=== PATIENT | female | born 1965 | race Two or more races ===

== ENCOUNTER 2023-02-14 00:19 | Emergency (ER) | payer OTHER ==
[~2023-02-14] VITALS: Ht 170.2 cm; Wt 127.0 kg
[2023-02-14] MEDS ORDERED: ZESTRIL20 MG PO (00:23)
[2023-02-14] MEDS ORDERED: LANTUS SOL100 UNIT/1 (00:24)
[2023-02-14] MEDS ORDERED: ATORVASTATIN CA10 MG PO (00:24)
[2023-02-14] MEDS ORDERED: SYNJARDY XR 101 EACH PO (00:24)
[2023-02-14] MEDS ORDERED: NORVASC2.5 M1 PO (00:25)
[2023-02-14 02:22] LABS: HEMATOCRIT 40.7 % (36.0-45.00); MEAN CELL VOLUME 85.1 fL (80.00-100.00); MEAN CORPUSCULAR HEMOGLOBIN 27.1 pg (27.00-32.0); MEAN CORPUSCULAR HGB CONC 31.9 g/dl (32.0-36.0); PLATELET COUNT 285 K/uL (150-450); RED BLOOD COUNT 4.78 M/uL (4.00-6.00); RED CELL DISTRIBUTION WIDTH 16.1 % (11.5-14.5)
[2023-02-14 02:41] LABS: INR 0.96; PARTIAL THROMBOPLASTIN TIME 22.5 SECONDS (22.0-34.0); PROTHROMBIN TIME 10.1 SECONDS (9.0-11.5)
[2023-02-14 02:50] LABS: ALBUMIN 3.4 gm/dL (3.4-5.0); BILIRUBIN TOTAL 0.24 mg/dL (0.3-1.2); CALCIUM 9.5 mg/dL (8.5-10.1); CREATININE SERUM 0.9 mg/dL (0.55-1.02); GFR 64.09; GLOBULINA 4.1 G/DL (2.4-3.5); POTASSIUM 3.49 mEq/L (3.5-5.1); TOTAL PROTEIN 7.5 gm/dL (6.4-8.2)
[2023-02-14 03:07] LABS: URINE APPEARANCE CLEAR; URINE BILIRRUBIN NEGATIVE (NEGATIVE); URINE BLOOD TRACE; URINE COLOR YELLOW; URINE GLUCOSE >=1000 MG/DL (NEGATIVE); URINE PROTEIN NEGATIVE (NEGATIVE)
[2023-02-14 03:08] LABS: URINE BACTERIA SOME; URINE LEUKOCYTE NEGATIVE; URINE MUCUS NEGATIVE; URINE NITRATE NEGATIVE; URINE UROBILINOGEN 0.2 E.U./dl
== END 2023-02-14 04:05 | disposition home or self-care (01) ==
LOC: ER 00:20
PROVIDERS: General Practice
DX: N93.9 Abnormal uterine and vaginal bleeding, unspecified (principal)

== ENCOUNTER → 2024-04-25 | Emergency (ER) | payer OTHER ==
[~2024-04-25] VITALS: Ht 165.1 cm; Wt 122.5 kg
[~2024-04-25] MED LIST: ATORVASTATIN CA10 MG PO; CEPHALEXIN500 MG PO; FAMOTIDINE/PF 20 MG/2 ML VIAL ONE; FAMOtidine 10 MG/ML (4ML VIAL) IV ONE; KETO10TA2 PO; KETOROLAC TROMETHAMINE 30 MG VIAL IV STA; KETOROLAC TROMETHAMINE 60 MG VIAL IM ONE; LANTUS SOL100 UNIT/1; NORVASC2.5 M1 PO; ONDANSETRON HCL 2 MG/ML VIAL IV ONE; ONDANSETRON HCL 2 MG/ML VIAL ONE; PEPCID40 MG PO; SYNJARDY XR 101 EACH PO; ZESTRIL20 MG PO
[2024-04-25 20:39] VITALS: BP 146/69
[2024-04-26 00:50] LABS: HEMATOCRIT 40.6 % (36.0-45.00); HEMOGLOBIN 13.5 g/dL (12.0-15.00); MEAN CELL VOLUME 86.6 fL (80.00-100.00); MEAN CORPUSCULAR HEMOGLOBIN 28.7 pg (27.00-32.0); MEAN CORPUSCULAR HGB CONC 33.1 g/dl (32.0-36.0); PLATELET COUNT 276 K/uL (150-450); RED BLOOD COUNT 4.69 M/uL (4.00-6.00); RED CELL DISTRIBUTION WIDTH 14.9 % (11.5-14.5)
[2024-04-26 01:20] LABS: INR < 0.93; PARTIAL THROMBOPLASTIN TIME 20.1 SECONDS (22.0-34.0); PROTHROMBIN TIME 10.2 SECONDS (9.0-11.5)
[2024-04-26 01:23] LABS: ALBUMIN 3.6 gm/dL (3.4-5.0); BILIRUBIN TOTAL 0.33 mg/dL (0.3-1.2); CALCIUM 9.1 mg/dL (8.5-10.1); CREATININE SERUM 0.86 mg/dL (0.55-1.02); GFR 67.31; GLOBULINA 3.8 G/DL (2.4-3.5); POTASSIUM 3.68 mEq/L (3.5-5.1); TOTAL PROTEIN 7.4 gm/dL (6.4-8.2)
[2024-04-26 03:56] LABS: AMYLASE 48 U/L (25-115)
[2024-04-26 04:02] LABS: LIPASE 34 U/L (13-75)
[2024-04-26 07:16] LABS: URINE APPEARANCE Cloudy; URINE BILIRRUBIN Negative (NEGATIVE); URINE BLOOD Negative; URINE COLOR Yellow; URINE KETONE Trace (NEGATIVE); URINE LEUKOCYTE Negative; URINE NITRATE Positive; URINE PROTEIN Negative (NEGATIVE); URINE UROBILINOGEN 0.2 E.U./dl
[2024-04-26 07:19] LABS: URINE EPITHELIAL CELLS 15.8 uL (0.0-38.8); URINE WBC 44.4 uL (0.0-23.2)
[2024-04-26 07:28] LABS: URINE BACTERIA > 9821.5 uL (0.0-1933); URINE CAST 1.03 uL (0.0-1.40); URINE GLUCOSE >=1000 MG/DL (NEGATIVE); URINE RBC 0.8 uL (0.0-20.8)
[2024-04-26 08:16] VITALS: O2SAT 100
== END | disposition home or self-care (01) ==
LOC: ER 20:29
PROVIDERS: General Practice
DX: M62.838 Other muscle spasm (principal); N39.0 Urinary tract infection, site not specified; R07.89 Other chest pain; E11.9 Type 2 diabetes mellitus without complications; Z79.4 Long term (current) use of insulin; Z79.84 Long term (current) use of oral hypoglycemic drugs; I10 Essential (primary) hypertension; R20.0 Anesthesia of skin